=== PATIENT | male | born 2000 | race Two or more races ===

== ENCOUNTER 2020-09-11 22:05 | Emergency (ER) | payer OTHER ==
[2020-09-11] MEDS ORDERED: ONDANSETRON 4 MG TAB.RAPDIS PO ONE (23:38)
[2020-09-11] MEDS ORDERED: IBUPROFEN 800 MG TABLET PO ONE (23:38)
--- NOTE | 2020-09-11 23:42 | ER Document Report ---
ED Medical Screen (RME) - General Chief Complaint: Abdominal Pain Stated Complaint: HEADACHE/ABDOMINAL PAIN RADIATING GROIN Time Seen by Provider: 09/11/20 23:38 Mode of Arrival: Ambulatory Information source: Patient Notes: 20-year-old male coming in today saying bad headache started around 8:00. Then he developed abdominal pain that goes into his right testicle. Nausea and one episode of emesis. No fevers or chills. No dysuria. No penile discharge. General exam: Nontoxic appearing Abdomen nontender to palpation Urinary: Unable to assess in triage I have greeted and performed a rapid initial assessment of this patient. A comprehensive ED assessment and evaluation of the patient, analysis of test results and completion of the medical decision making process will be conducted by additional ED providers. Physical Exam - Vital signs Vitals: Temp Pulse Resp BP Pulse Ox 99 F 63 16 137/83 H 98 09/11/20 22:31 09/11/20 22:31 09/11/20 22:31 09/11/20 22:31 09/11/20 22:31 Course - Vital Signs Vital signs: Temp Pulse Resp BP Pulse Ox 99 F 63 16 137/83 H 98 09/11/20 22:31 09/11/20 22:31 09/11/20 22:31 09/11/20 22:31 09/11/20 22:31
--- NOTE | 2020-09-12 01:50 | RADIOLOGY REPORT (SQ) ---
EXAM DESCRIPTION: CT ABDOMEN PELVIS WITHOUT IV CONTRAST COMPLETED DATE/TME: 09/11/2020 23:39 CLINICAL HISTORY: 20 years, Male, ABD R TESTICULAR PAIN. COMPARISON: None. TECHNIQUE: Noncontrast imaging of the abdomen and pelvis was performed. Images stored on PACS. All CT scanners at this facility use dose modulation, iterative reconstruction, and/or weight based dosing when appropriate to reduce radiation dose to as low as reasonably achievable (ALARA). [facility]: Dose Right [facility]: CareDose [facility]: Dose Right [facility]: Teradose 4D [facility]: [employer] LIMITATIONS: None. FINDINGS: Visualized lung bases are clear. There is no urinary tract calculus or hydronephrosis. No definite inflammatory changes, masses, or abnormal collections are identified. Unenhanced solid organs are grossly unremarkable. The appendix is within normal limits. There is no abnormal bowel dilation. No free fluid or lymphadenopathy. Bone windows are unremarkable. IMPRESSION: No acute abnormality as above. TECHNICAL DOCUMENTATION: Quality ID # 436: Final reports with documentation of one or more dose reduction techniques (e.g., Automated exposure control, adjustment of the mA and/or kV according to patient size, use of iterative reconstruction technique) copyright 2010 [employer]- All Rights Reserved
--- NOTE | 2020-09-12 03:01 | RADIOLOGY REPORT (SQ) ---
TESTICULAR ULTRASOUND: 09/12/2020 1:59 AM CDT HISTORY: 20-year old patient with flank pain, inguinal pain. COMPARISON: CT of abdomen and pelvis from earlier on the same day TECHNIQUE: Multiple longitudinal and transverse sonographic images were obtained of the right and left testicle. Color and spectral doppler images were obtained of the testicular vasculature. FINDINGS: Both testicles appear homogenous without evidence of a mass. The left testicle appears normal in size, and it measures 3.8 x 1.9 x 3.0 cm. The left testicle appears homogeneous in echotexture and demonstrates arterial blood flow within the testicle. The left epididymal head appears normal in size and does not appear hyperemic. The right testicle appears normal in size, and it measures 4.4 x 2.2 x 3.0 cm. The right testicle appears homogeneous in echotexture and demonstrates good arterial blood flow within the testicle. The right epididymal head appears normal in size and does not appear hyperemic. IMPRESSION: 1. No evidence is seen to suggest testicular torsion. 2. No intratesticular mass is seen.
[2020-09-12 03:49] LABS: ABSOLUTE EOSINOPHILS # (AUTO) 0.1 10^3/uL (0.0-0.6); ABSOLUTE LYMPHOCYTES (AUTO) 3.3 10^3/uL (0.5-4.7); ABSOLUTE MONOCYTES (AUTO) 0.5 10^3/uL (0.1-1.4); ABSOLUTE NEUT (AUTO) 3.1 10^3/uL (1.7-8.2); BASOPHILS % (AUTO) 0.3 % (0-2); HEMATOCRIT 41.6 % (37.9-51.0); HEMOGLOBIN 14.9 g/dL (13.5-17.0); LYMPHOCYTES % (AUTO) 47.1 % (13-45); MEAN CORPUSCULAR HEMOGLOBIN 29.1 pg (27.0-33.4); MEAN CORPUSCULAR HGB CONC 35.8 g/dL (32.0-36.0); MEAN CORPUSCULAR VOLUME 82 fl (80-97); MONOCYTES % (AUTO) 7.5 % (3-13); PLATELET COUNT 224 10^3/uL (150-450); RED CELL DISTRIBUTION WIDTH 12.6 % (11.5-14.0); SEGMENTED NEUTROPHILS % (AUTO) 44.1 % (42-78); TOTAL CELLS COUNTED % (AUTO) 100 %
[2020-09-12 04:03] LABS: ALBUMIN 4.6 g/dL (3.5-5.0); ALKALINE PHOSPHATASE 53 U/L (38-126); ANION GAP 13 (5-19); ASPARTATE AMINO TRANSFERASE 31 U/L (17-59); BILIRUBIN,DIRECT 0.2 mg/dL (0.0-0.4); BILIRUBIN,TOTAL 0.4 mg/dL (0.2-1.3); BLOOD UREA NITROGEN 18 mg/dL (7-20); CALCIUM 9.7 mg/dL (8.4-10.2); CARBON DIOXIDE 25 mmol/L (22-30); CHLORIDE 101 mmol/L (98-107); GLUCOSE 97 mg/dL (75-110); POTASSIUM 3.8 mmol/L (3.6-5.0); TOTAL PROTEIN 6.9 g/dL (6.3-8.2)
[2020-09-12 05:08] LABS: APPEARANCE,URINE CLEAR; BILIRUBIN,URINE NEGATIVE (NEGATIVE); COLOR,URINE YELLOW; GLUCOSE, URINE NEGATIVE (NEGATIVE); KETONES,URINE NEGATIVE (NEGATIVE); PROTEIN,URINE NEGATIVE (NEGATIVE); URINE SPECIFIC GRAVITY 1.024
--- NOTE | 2020-09-12 05:15 | ER Document Report ---
ED General - General Chief Complaint: Testicular Pain Stated Complaint: HEADACHE/ABDOMINAL PAIN RADIATING GROIN Time Seen by Provider: 09/11/20 23:38 Primary Care Provider: CASS RAE [Primary Care Provider] - Follow up as needed Mode of Arrival: Ambulatory - [facility] Notes: Patient is a 20-year-old male who presents to the emergency department for evaluation. He says he developed this sharp and stabbing pain in his right abdomen that radiated into his right testicle. He had nausea with one episode of emesis. He denies any hematuria or urinary frequency. No dysuria. Normal bowel movements. He states he was a started on a medication "for parasites." He states he had some diarrhea out about a month ago and was started on this. He really cannot tell me what it was. - Related Data Allergies/Adverse Reactions: No Known Allergies Allergy (Unverified 09/11/20 23:48) Past Medical History - General Information source: Patient - Social History Smoking Status: Never Smoker Frequency of alcohol use: Occasional Drug Abuse: None Family History: Other - Kidney stones in uncle Past Surgical History: Reports: Hx Inguinal Hernia Review of Systems - Review of Systems Constitutional: No symptoms reported EENT: No symptoms reported Cardiovascular: No symptoms reported Respiratory: No symptoms reported Gastrointestinal: See HPI Genitourinary: No symptoms reported Male Genitourinary: See HPI Musculoskeletal: No symptoms reported Hematologic/Lymphatic: No symptoms reported Physical Exam - Vital signs Vitals: Temp Pulse Resp BP Pulse Ox 99 F 63 16 137/83 H 98 09/11/20 22:31 09/11/20 22:31 09/11/20 22:31 09/11/20 22:31 09/11/20 22:31 - Notes Notes: Vital signs reviewed, please refer to chart. Head is normocephalic, atraumatic. Pupils equal round, reactive to light. Neck is supple without meningismus. Heart is regular rate and rhythm. Lungs are clear to auscultation bilaterally. Abdomen is soft, nontender, normoactive bowel sounds throughout. Extremities without cyanosis, clubbing. Posterior calves are nontender. Peripheral pulses are equal. Skin is warm and dry. Patient is awake, alert, neurological exam is nonfocal. Genital exam is performed with GROVER Torres, present in the room. Normal external genitalia, circumcised. Bilateral testicles are descended in a proper orientation. Mild tenderness over the right testicle. No skin changes. Intact cremasteric reflex, no hernias palpated. Course - Re-evaluation Re-evalutation: 09/12/20 05:13 Patient presents to the emergency department for evaluation. Laboratory investigations and imaging is ordered through triage. He had an ultrasound which failed reveal any signs of torsion or abnormality. CT scan failed to show any abnormality. Urinalysis is unremarkable. I do not a clear etiology for this patient's pain. He is currently pain-free. We will have him follow-up with his primary care provider. He is to return to the emergency department worsening or new concerning symptoms of any sort. - Vital Signs Vital signs: Temp Pulse Resp BP Pulse Ox 97.9 F 55 L 16 129/79 H 98 09/12/20 03:44 09/12/20 03:44 09/12/20 03:44 09/12/20 03:44 09/12/20 03:44 - Laboratory Result Diagrams: 09/12/20 03:40 09/12/20 03:40 Laboratory results interpreted by me: 09/12/20 09/12/20 02:45 03:40 Lymph % (Auto) 47.1 H Urine Urobilinogen 2.0 H - Diagnostic Test Radiology reviewed: Reports reviewed Radiology results interpreted by me: 09/12/20 05:14 Abdomen/Pelvis CT 09/11/20 23:39 IMPRESSION: No acute abnormality as above. TECHNICAL DOCUMENTATION: Quality ID # 436: Final reports with documentation of one or more dose reduction techniques (e.g., Automated exposure control, adjustment of the mA and/or kV according to patient size, use of iterative reconstruction technique) copyright 2011 [employer]- All Rights Reserved Scrotum Ultrasound 09/11/20 23:39 IMPRESSION: 1. No evidence is seen to suggest testicular torsion. 2. No intratesticular mass is seen. Discharge - Discharge Clinical Impression: Right sided abdominal pain, Right testicular pain Condition: Stable Disposition: HOME, SELF-CARE Instructions: Abdominal Pain ([facility]), Testicular Pain ([facility]) Additional Instructions: No clear cause was identified for your pain today. Rest. Follow-up with your primary care provider and urology this week. Return to the emergency department worsening or new concerning symptoms of any sort. Referrals: LOCALMD,NO [Primary Care Provider] - Follow up as needed
[2020-09-12 05:27] VITALS: BP 144/76
== END 2020-09-12 05:28 | disposition home or self-care (01) ==
LOC: ER 22:05
DX: N50.811 Right testicular pain (principal); R10.9 Unspecified abdominal pain; R51.9 Headache, unspecified; R11.2 Nausea with vomiting, unspecified
CPT/HCPCS: 99285; 36415; 85025; 80053; 81001; 76870; 93976; 74176; S0119